=== PATIENT | female | born 1960 | race Caucasian/White ===

== ENCOUNTER 2016-10-02 14:20 | Inpatient (IN) | payer OTHER ==
[~2016-10-02] VITALS: Ht 167.6 cm; Wt 78.1 kg
--- NOTE | ~2016-10-02 | WRIGHTHP ---
[place], [place] PATIENT HISTORY AND PHYSICAL EXAM NAME: FRANCISCO MIRZA [facility] #: [id number] UNIT #: [id number] ROOM: 518 DOCTOR: THELMA LONGO MD BIRTHDATE: [birth year] DOS: 10/02/2016 HISTORY OF PRESENT ILLNESS: The patient is a 55-year-old female with a past medical history of: 1. Major depression, recurrent. 2. Severe generalized anxiety disorder. 3. GERD. 4. History of substance abuse with marijuana and cocaine in the past. 5. History of recurrent severe chronic abdominal pains from uncertain etiology. The patient is completely worked up by production finisher with EGD, CT scan of the abdomen and pelvis, and colonoscopy in the past, which only showed a small hiatal hernia and some gastritis. 6. Chronic pain syndrome and opioid seeking behavior. 7. History of continued nicotine smoke dependence. 8. Type 2 diabetes mellitus. 9. Irritable bowel syndrome. 10. History of hepatitis C positive in the past, which was treated. The patient came to my office yesterday complaining of some episode of shortness of breath and pulse oximetry and exercise pulse oximetry was completely normal. The patient was sent home, but she came back to the Emergency Department this time complaining of chest tightness. The pains were in the mid to left chest precordial and radiating into her neck. After initial testing in the Emergency Department, the patient was recommended for admission and further management. After admission, the patient's cardiac enzymes were checked to be normal and then she was taken for a cardiac stress test. Results of the cardiac stress test still pending. The patient is chest pain free. REVIEW OF SYSTEMS: LUNGS: Occasional complains of shortness of breath. GASTROINTESTINAL: No nausea, vomiting, diarrhea, or constipation. CARDIOVASCULAR: Recurrent chest pains, no palpitations. FAMILY HISTORY: Noncontributory. HOME MEDICATIONS: Gabapentin, Wellbutrin, trazodone, Brintellix, Seroquel, nicotine patch, hydroxyzine, bronchodilators, clonazepam, DuoNebs. ALLERGIES: No known drug allergies. PHYSICAL EXAMINATION: GENERAL APPEARANCE: The patient is alert and oriented x 3, in no visible distress. VITAL SIGNS: Blood pressure 127/50, heart rate 78 beats per minute, breathing 18 times per minute, temperature 98 degrees Fahrenheit. HEENT AND NECK: Extraocular movements are intact. Sclerae are anicteric. Oral mucosa is moist and clean. No obvious facial weakness. Neck is supple without any lymphadenopathy. No thyromegaly. No JVD. No carotid arterial bruits. LUNGS: Clear to auscultation. No wheezing. No rhonchi. CARDIOVASCULAR SYSTEM: Heart rate is regular in rate and rhythm. S1 and S2 normally audible. No significant murmur or any other abnormal cardiac sounds. [place], [place] PATIENT HISTORY AND PHYSICAL EXAM NAME: FRANCISCO MIRZA UNIT #: [id number] ROOM: 518 DOCTOR: THELMA LONGO MD BIRTHDATE: [birth year] ABDOMEN: Soft, nontender. No obvious organomegaly. Bowel sounds are present. No obvious herniation. EXTREMITIES: Without significant cyanosis or edema. Warm to touch. CENTRAL NERVOUS SYSTEM: Alert and oriented x 3. Cranial nerves II-XII are intact. Speech is normal. The patient is able to move all extremities. Normal muscle strength. Deep tendon reflexes are equal on both sides. Plantars were downgoing. LABORATORY DATA: PT and PTT were normal. CBC was normal. IMPRESSION AND PLAN: 1. The patient with chest pains from uncertain etiology, ruled out with negative cardiac enzymes and her cardiac stress test results are pending. If normal, she can be discharged to home today to follow up at the office. 2. Severe generalized anxiety disorder, treated and followed. The patient also follows up with Psychiatry. Presently on bupropion, hydroxyzine, clonazepam. 3. Bronchial asthma and centrilobular emphysema from continued nicotine smoke dependence. The patient being encouraged to stop and kept on bronchodilators. 4. Nicotine smoke dependence. The patient on nicotine patch to help her stop smoking cigarettes. 5. Type 2 diabetes mellitus. Blood sugars will be monitored and treated. 6. Treated hepatitis C in the past. THELMA LONGO MD CM:HISPHYS:PATIENT HISTORY AND PHYSICAL EXAMINATION [id number] THELMA LONGO MD 10/03/16 1223 interface
--- NOTE | ~2016-10-02 | ST ---
[place], [place] EXERCISE STRESS TEST REPORT NAME: [facility] [id number] UNIT #: [id number] ROOM: 518 DOCTOR: QING LR,THELMA Cool BIRTHDATE: [birth year] DOS: 10/03/2016 The patient is 55 years old, 5 feet and 9 inches tall, weighing 173 pounds. The patient was tested with Lexiscan Cardiolite cardiac stress test. The patient was given 0.4 mg of Lexiscan infusion over 10 seconds and this was followed by Cardiolite injection in 40 seconds. The patient's blood pressure ranged between 120 systolic over 70 diastolic to 126 systolic over 60 diastolic. Heart rate ranged between 76-118 beats per minute. The patient remained chest pain free. Baseline EKG showed sinus rhythm at a heart rate of 80 beats per minute, normal cardiac axis, no significant ST-T abnormality. During the stress and recovery phase, the patient remained symptom free. No acute ST-T abnormality. No angina-like symptoms. IMPRESSION: 1. Normal EKG part of the Lexiscan cardiac stress test. 2. Cardiolite results to be reported by Cardiology later today. THELMA LONGO MD CM:STRESS:EXERCISE STRESS TEST REPORT [id number] THELMA LONGO MD
[~2016-10-02 14:20] MED LIST: ALBUTEROL2.5 MG/0.5 INH; ALIVE WOMENS ENERGY; AMOXICILLIN500 M2 PO; BENTYL10 MG PO; BENTYL20 MG PO; BRIN20TA PO; CIPROFLOXACIN500 MG PO; COLON CLEANSE; DAYPRO600 M1 PO; EFFEXOR XR150 MG PO; FLAGYL500 MG PO; GEODON80 MG PO; HYDROCODONE BIT1 T11 PO; HYOMAX0.125 MG PO; KEFLEX500 MG PO; KLONOPIN1 MG; KLONOPIN1 MG PO; LEVOFLOXACIN500 MG PO; LOMOTIL 0.025 M1 TA1 PO; MEDROL DOSEPAK4 MG PO; MOTRIN800 MG PO; Motrin,Rufen800 MG PO; NAPROSYN500 MG PO; NEURONTIN300 MG PO; NICOTINE T21 MG/24 H TD; OMEPRAZOLE20 MG; ONDANSETRON HYDR4 M1 PO; Orphenadrine C100 MG PO; PERCOCET 325 MG1 TA2 PO; PERCOCET 325 MG1 TA7 PO; POTASSIUM GLUC550 M1 PO; PRISTIQ50 MG PO; PROTONIX40 MG PO; ROBAXIN750 MG PO; SEROQUEL100 MG PO; SEROQUEL50 MG PO; TRAMADOL HCL50 MG PO; TRAZADONE HYDR100 MG PO; TRAZODONE150 MG PO; ULTRAM50 MG PO; URIBEL PO; VENTOLIN H0.09 MG/AC INH; VESICARE5 MG PO; VIBRAMYCIN100 MG PO; VICO75300 PO; VICODIN 5-3001 EACH PO; VICODIN 5/500 505 MG PO; VICODIN ES 7501 TA1; VICODIN ES 7501 TAB PO; VIIBRYD; VIIBRYD40; VOLTAREN50 M1 PO; WELLBUTRIN XL300 MG PO; ZANTAC150 MG PO; ZOFRAN ODT8 MG PO; ZOFRAN4 MG PO; ZOVIRAX800 MG PO; Zofran4 MG PO; [UNRECOGNIZED DRUG - OTHER] PO; [UNRECOGNIZED DRUG - OTHER] PO
[2016-10-02 14:28] VITALS: BP 190/86
[2016-10-02] MEDS ORDERED: SYMBICORT1 AE1 INH (14:31)
[2016-10-02 14:39] LABS: BASO # 0.1 10*3/uL (0.0-0.1); BASO % 0.7 % (0.0-1.0); EOS # 0.2 10*3/uL (0.0-0.4); EOS % 1.9 % (1.0-4.0); HEMATOCRIT 45.4 % (37.0-47.0); HEMOGLOBIN 15.1 g/dl (12.0-16.0); LYMPH # 3.5 10*3/uL (1.3-4.4); LYMPH % 37.2 % (27.0-41.0); MEAN CELL VOLUME 91.2 fl (81.0-99.0); MEAN CORPUSCULAR HGB 30.3 pg (27.0-31.0); MEAN CORPUSCULAR HGB CONC 33.3 g/dl (33.0-37.0); MEAN PLATELET VOLUME 10.7 fl (9.6-12.3); MONO # 0.8 10*3/uL (0.1-1.0); MONO % 8.3 % (3.0-9.0); NEUT # 4.9 10*3/uL (2.3-7.9); NEUT % 51.6 % (47.0-73.0); PLATELET COUNT AUTOMATED 214 10*3/uL (130-400); RED BLOOD COUNT 4.98 10*6/uL (4.10-5.10); RED CELL DISTRI WIDTH 13.4 % (0-14.5); WHITE BLOOD COUNT 9.4 10*3/uL (4.8-10.8)
[2016-10-02 14:50] LABS: INTERNATIONAL NORM RATIO 0.9 (2.0-3.5); PROTHROMBIN TIME 9.9 SECONDS (9.0-12.4)
[2016-10-02 15:00] VITALS: BP 163/80
[2016-10-02 15:04] LABS: ALBUMIN 3.9 gm/dl (3.1-4.5); ALKALINE PHOSPHATASE 85 U/L (45-117); BILIRUBIN, TOTAL 0.3 mg/dl (0.2-1.0); BUN 15 mg/dl (7-24); CARBON DIOXIDE 26 mmol/L (21-32); CHLORIDE 105 mmol/L (98-107); EST GLOM FILT AFRICAN AMERICAN > 60 ml/min; GLUCOSE 92 mg/dL (65-99); MAGNESIUM 1.8 mg/dL (1.5-2.1); POTASSIUM 3.8 mmol/L (3.5-5.1); SGOT/AST 19 IU/L (3-35); SGPT/ALT 24 U/L (12-78); SODIUM 138 mmol/L (136-145); TOTAL PROTEIN 7.4 gm/dL (6.4-8.2)
[2016-10-02 15:05] LABS: TROPONIN I < 0.015 ng/ml (<0.045)
[2016-10-02 15:48] LABS: URINE AMPHETAMINES < 1000 (1000ng/ml); URINE BARBITURATES < 200 (200ng/ml); URINE COCAINE < 300 (300ng/ml)
[2016-10-02 16:00] VITALS: BP 148/53
[2016-10-02 16:09] LABS: BILIRUBIN NEGATIVE (NEGATIVE); BLOOD TRACE-INTACT (NEGATIVE); CLARITY CLEAR (CLEAR); COLOR YELLOW (YELLOW); GLUCOSE NEGATIVE (NEGATIVE); KETONE NEGATIVE (NEGATIVE); LEUKO ESTERASE NEGATIVE (NEGATIVE); NITRITE NEGATIVE (NEGATIVE); PROTEIN NEGATIVE (NEGATIVE); UROBILINOGEN 0.2 E.U./dl (0.2-1.0)
[2016-10-02 16:29] LABS: EPITHELIAL CELLS 0-2; URINE REFLEX COMMENT NO (NO); WBC 0-2 wbc/hpf (0-5)
[2016-10-02 18:07] VITALS: BP 153/77
[2016-10-02 18:15] VITALS: BP 152/78
[2016-10-02] MEDS ORDERED: NEURONTIN300 MG PO (18:31)
[2016-10-02] MEDS ORDERED: WELLBUTRIN SR200 MG PO (18:31)
[2016-10-02] MEDS ORDERED: VISTARIL25 MG PO (18:32)
[2016-10-02 20:00] VITALS: BP 148/53
[2016-10-03] VITALS: BP 121/64
[2016-10-03 08:00] VITALS: BP 127/50
[2016-10-03 12:00] VITALS: BP 140/71
[2016-10-03 16:00] VITALS: BP 127/67
[2016-10-03] MEDS ORDERED: NICOTINE T21 MG/24 H TD (17:06)
== END 2016-10-03 18:11 | disposition home or self-care (01) | DRG 206 ==
LOC: ED 14:20 → EDHOLD 15:34 → 5E 16:09
PROVIDERS: Emergency Medicine; Physician Assistant
DX: M94.0 Chondrocostal junction syndrome [Tietze] (principal); F33.9 Major depressive disorder, recurrent, unspecified; F41.1 Generalized anxiety disorder; J43.2 Centrilobular emphysema; J45.998 Other asthma; F17.210 Nicotine dependence, cigarettes, uncomplicated; E11.9 Type 2 diabetes mellitus without complications; B19.20 Unspecified viral hepatitis C without hepatic coma; K21.9 Gastro-esophageal reflux disease without esophagitis; G89.4 Chronic pain syndrome; K58.9 Irritable bowel syndrome, unspecified

== ENCOUNTER 2016-11-03 15:23 | Emergency (ER) | payer OTHER ==
[~2016-11-03 15:23] MED LIST changes: +SYMBICORT1 AE1 INH; +VISTARIL25 MG PO; +WELLBUTRIN SR200 MG PO
[2016-11-03 15:33] VITALS: BP 144/80
[2016-11-03] MEDS ORDERED: AMOXICILLIN500 M2 PO (16:39)
== END 2016-11-03 16:27 | disposition home or self-care (01) ==
LOC: ED 15:23
DX: S62.632A Displaced fracture of distal phalanx of right middle finger, initial encounter for closed fracture (principal); S61.212A Laceration without foreign body of right middle finger without damage to nail, initial encounter; F17.200 Nicotine dependence, unspecified, uncomplicated; G89.29 Other chronic pain; F41.8 Other specified anxiety disorders; K21.9 Gastro-esophageal reflux disease without esophagitis; Z98.890 Other specified postprocedural states; Z79.899 Other long term (current) drug therapy; Z98.51 Tubal ligation status; Z90.89 Acquired absence of other organs; W45.8XXA Other foreign body or object entering through skin, initial encounter; Y93.89 Activity, other specified; Y92.59 Other trade areas as the place of occurrence of the external cause; Y99.9 Unspecified external cause status

== ENCOUNTER 2016-11-14 10:10 | Emergency (ER) | payer OTHER ==
[~2016-11-14] VITALS: Wt 73.9 kg
[2016-11-14 10:23] VITALS: BP 126/101
== END 2016-11-14 12:09 | disposition home or self-care (01) ==
LOC: ED 10:10
DX: S62.630G Displaced fracture of distal phalanx of right index finger, subsequent encounter for fracture with delayed healing (principal); L03.011 Cellulitis of right finger; Z79.899 Other long term (current) drug therapy; F17.200 Nicotine dependence, unspecified, uncomplicated; W23.0XXD Caught, crushed, jammed, or pinched between moving objects, subsequent encounter

== ENCOUNTER → 2016-12-12 | Outpatient (CLI) | payer OTHER | END | disposition home or self-care (01) | LOC: ORTHO 03:20 | DX: S62.662D Nondisplaced fracture of distal phalanx of right middle finger, subsequent encounter for fracture with routine healing (principal); X58.XXXD Exposure to other specified factors, subsequent encounter ==

== ENCOUNTER → 2017-02-13 | Outpatient (CLI) | payer OTHER ==
[2017-02-13 10:25] LABS: BASO # 0.1 10*3/uL (0.0-0.1); BASO % 0.6 % (0.0-1.0); EOS # 0.1 10*3/uL (0.0-0.4); EOS % 1.5 % (1.0-4.0); HEMATOCRIT 44.6 % (37.0-47.0); HEMOGLOBIN 14.7 g/dl (12.0-16.0); LYMPH # 2.1 10*3/uL (1.3-4.4); LYMPH % 24.4 % (27.0-41.0); MEAN CELL VOLUME 93.3 fl (81.0-99.0); MEAN CORPUSCULAR HGB 30.8 pg (27.0-31.0); MEAN PLATELET VOLUME 10.8 fl (9.6-12.3); MONO # 0.7 10*3/uL (0.1-1.0); MONO % 8.2 % (3.0-9.0); NEUT # 5.5 10*3/uL (2.3-7.9); NEUT % 64.9 % (47.0-73.0); PLATELET COUNT AUTOMATED 197 10*3/uL (130-400); RED BLOOD COUNT 4.78 10*6/uL (4.10-5.10); RED CELL DISTRI WIDTH 13.4 % (0-14.5); WHITE BLOOD COUNT 8.5 10*3/uL (4.8-10.8)
[2017-02-13 10:58] LABS: ALBUMIN 3.6 gm/dl (3.1-4.5); BUN 15 mg/dl (7-24); CHLORIDE 104 mmol/L (98-107); POTASSIUM 3.8 mmol/L (3.5-5.1); SGOT/AST 32 IU/L (3-35); SGPT/ALT 43 U/L (12-78); SODIUM 138 mmol/L (136-145); TOTAL PROTEIN 6.9 gm/dL (6.4-8.2)
[2017-02-13 10:59] LABS: ALKALINE PHOSPHATASE 73 U/L (45-117)
[2017-02-14 20:09] LABS: HEPATITIS C QNT HCV Not Detected IU/mL (.)
== END | disposition home or self-care (01) ==
LOC: LAB 09:50
PROVIDERS: Family Medicine
DX: K57.92 Diverticulitis of intestine, part unspecified, without perforation or abscess without bleeding (principal)

== ENCOUNTER → 2017-02-14 | Outpatient (CLI) | payer OTHER | END | disposition home or self-care (01) | LOC: CT 02:09 | DX: K57.92 Diverticulitis of intestine, part unspecified, without perforation or abscess without bleeding (principal); J43.9 Emphysema, unspecified; E07.9 Disorder of thyroid, unspecified; N28.1 Cyst of kidney, acquired; I70.0 Atherosclerosis of aorta; K42.9 Umbilical hernia without obstruction or gangrene ==

== ENCOUNTER → 2017-07-16 | Outpatient (CLI) | payer OTHER ==
[2017-07-18 00:02] LABS: CLONAZEPAM (KLONOPIN),SERUM 10 ng/mL (20-70)
== END | disposition home or self-care (01) ==
LOC: LAB 11:13
PROVIDERS: Nurse Practitioner Adult Health
DX: F31.9 Bipolar disorder, unspecified (principal)

== ENCOUNTER 2017-08-19 14:36 | Emergency (ER) | payer OTHER ==
[~2017-08-19] VITALS: Ht 170.1 cm; Wt 72.6 kg
[2017-08-19 14:58] VITALS: BP 145/85
[2017-08-19] MEDS ORDERED: Zofran4 MG PO (15:04)
[2017-08-19 15:59] LABS: BASO # 0.1 10*3/uL (0.0-0.1); EOS # 0.2 10*3/uL (0.0-0.4); EOS % 1.9 % (1.0-4.0); HEMATOCRIT 45.3 % (37.0-47.0); HEMOGLOBIN 14.7 g/dl (12.0-16.0); LYMPH # 2.3 10*3/uL (1.3-4.4); LYMPH % 29.5 % (27.0-41.0); MEAN CELL VOLUME 93.6 fl (81.0-99.0); MEAN CORPUSCULAR HGB 30.4 pg (27.0-31.0); MEAN CORPUSCULAR HGB CONC 32.5 g/dl (33.0-37.0); MEAN PLATELET VOLUME 11.1 fl (9.6-12.3); MONO # 0.7 10*3/uL (0.1-1.0); MONO % 9.3 % (3.0-9.0); NEUT # 4.6 10*3/uL (2.3-7.9); PLATELET COUNT AUTOMATED 213 10*3/uL (130-400); RED BLOOD COUNT 4.84 10*6/uL (4.10-5.10); WHITE BLOOD COUNT 7.9 10*3/uL (4.8-10.8)
[2017-08-19 16:13] LABS: BILIRUBIN NEGATIVE (NEGATIVE); BLOOD TRACE-INTACT (NEGATIVE); CLARITY CLEAR (CLEAR); COLOR YELLOW (YELLOW); GLUCOSE NEGATIVE (NEGATIVE); KETONE NEGATIVE (NEGATIVE); LEUKO ESTERASE NEGATIVE (NEGATIVE); NITRITE NEGATIVE (NEGATIVE); SPECIFIC GRAVITY <= 1.005 (1.005-1.030); UROBILINOGEN 0.2 E.U./dl (0.2-1.0)
[2017-08-19 16:19] LABS: ALBUMIN 3.5 gm/dl (3.1-4.5); ALKALINE PHOSPHATASE 86 U/L (45-117); BUN 15 mg/dl (7-24); CHLORIDE 106 mmol/L (98-107); CREATININE 0.97 mg/dL (0.55-1.02); LIPASE 322 U/L (73-393); POTASSIUM 4.3 mmol/L (3.5-5.1); SGOT/AST 17 IU/L (3-35); SGPT/ALT 19 U/L (12-78); SODIUM 141 mmol/L (136-145)
[2017-08-19 16:31] LABS: BACTERIA 2+; RBC 0-2 rbc/hpf (0-2)
== END 2017-08-19 17:37 | disposition home or self-care (01) ==
LOC: ED 14:36
PROVIDERS: Emergency Medicine
DX: K58.9 Irritable bowel syndrome, unspecified (principal); R10.32 Left lower quadrant pain; G89.29 Other chronic pain; K21.9 Gastro-esophageal reflux disease without esophagitis; F17.200 Nicotine dependence, unspecified, uncomplicated; Z98.890 Other specified postprocedural states; Z98.51 Tubal ligation status; Z90.89 Acquired absence of other organs; Z79.899 Other long term (current) drug therapy

== ENCOUNTER → 2018-05-07 | Outpatient (CLI) | payer OTHER | END | disposition home or self-care (01) | LOC: RAD 13:32 | DX: R06.02 Shortness of breath (principal); J44.9 Chronic obstructive pulmonary disease, unspecified; F17.210 Nicotine dependence, cigarettes, uncomplicated ==

== ENCOUNTER → 2018-05-23 | Day surgery (SDC) | payer OTHER ==
[~2018-05-23] VITALS: Ht 170.1 cm; Wt 79.8 kg
[~2018-05-23] MED LIST changes: +NEURONTIN600 MG PO
--- NOTE | ~2018-05-23 | O ---
[place], [place] OPERATIVE NOTE NAME: FRANCISCO MIRZA UNIT #: [id number] ROOM: DOCTOR: ELENA MCDANIEL MD BIRTHDATE: [birth year] DOS: 05/23/2018 GASTROENDOSCOPIC REPORT INDICATIONS: This is a 57-year-old patient who has presented with a chief complaint of constipation, undergoing investigation. MEDICATIONS: The patient is on Amitiza 24 mcg, MiraLax, and Bentyl. ALLERGIES: To no known medications. FAMILY HISTORY: Noncontributory. PAST SURGICAL HISTORY: Laparoscopic examination, . PAST MEDICAL HISTORY: Depression. SOCIAL HISTORY: Smoker. Nonalcohol consumer. PROCEDURE: Today's procedure part of investigation is colonoscopy. PREMEDICATION: Propofol. SCOPE: Olympus forward-viewing colonoscope 10L video. REPORT: After putting the patient in left lateral position and application of lubricant to the scope, scope was introduced, thereafter under direct visualization advanced through the length of colon with some difficulty; difficulty being because of retained stool as well as tortuosity of the colon was exacerbating the situation. Scope was negotiated all the way throughout the length of colon until we no longer can advance due to retained stool. Diverticulosis of the sigmoid colon was appreciated. A sessile polypoid lesion also in the sigmoid colon noticed. With piecemeal polypectomy, we removed it. Photographic series obtained. Air was suctioned out. The patient was extubated, tolerated the procedure well. IMPRESSION: Sigmoid colon polyp status post piecemeal polypectomy, diverticulosis. PLAN AND DISCUSSION: We are going to continue with Amitiza, MiraLax, and Bentyl. Tortuosity of the colon is an anatomical defect. Regarding the constipation issue, she needs always to remain on stool softener or laxatives. CT scan of the abdomen, no acute pathology has been found. Thank you very much indeed for your kind referral. [place], [place] OPERATIVE NOTE NAME: FRANCISCO MIRZA UNIT #: [id number] ROOM: DOCTOR: ELENA MCDANIEL MD BIRTHDATE: [birth year] ELENA MCDANIEL MD CM:OPRECORD:OPERATIVE NOTE [id number] ELENA MCDANIEL MD 05/23/18 1402 interface
[2018-05-23 11:00] VITALS: BP 128/77
[2018-05-23 13:20] VITALS: BP 134/67
[2018-05-23 13:35] VITALS: BP 121/85
[2018-05-23 13:50] VITALS: BP 126/81
== END | disposition home or self-care (01) ==
LOC: SDC 05-19 12:30
DX: K63.5 Polyp of colon (principal); K21.9 Gastro-esophageal reflux disease without esophagitis; F32.9 Major depressive disorder, single episode, unspecified; I10 Essential (primary) hypertension; J45.909 Unspecified asthma, uncomplicated; B19.20 Unspecified viral hepatitis C without hepatic coma; F17.210 Nicotine dependence, cigarettes, uncomplicated; F41.9 Anxiety disorder, unspecified; J43.9 Emphysema, unspecified; Z79.899 Other long term (current) drug therapy; Z86.73 Personal history of transient ischemic attack (TIA), and cerebral infarction without residual deficits; Z98.890 Other specified postprocedural states; Z82.49 Family history of ischemic heart disease and other diseases of the circulatory system

== ENCOUNTER → 2018-12-04 | Outpatient (CLI) | payer OTHER ==
[~2018-12-04] MED LIST changes: +ACYCLOVIR800 MG PO; +EFFEXOR XR75 MG PO; +FLUCONAZOLE100 MG PO; +METOPROLOL SUCC25 M2 PO; +NORCO 5-325 TA1 EACH PO; +OMNICEF300 MG PO; +PRILOSEC20 M1 PO
[2018-12-05 07:09] LABS: HEPATITIS B SURFACE AG Negative (Negative); HEPATITIS C VIRUS ANTIBODY >11.0 s/co (0.0-0.9)
[2018-12-06 00:03] LABS: HEPATITIS C QUANTITATION HCV Not Detected IU/mL (.)
== END | disposition home or self-care (01) ==
LOC: LAB 11:25
PROVIDERS: Family Medicine
DX: B18.2 Chronic viral hepatitis C (principal); B37.81 Candidal esophagitis; Z11.4 Encounter for screening for human immunodeficiency virus [HIV]

== ENCOUNTER 2021-03-22 12:11 | Emergency (ER) | payer OTHER ==
[2021-03-22 13:14] LABS: BASO # 0.1 10*3/uL (0.0-0.1); BASO % 0.9 % (0.0-1.0); EOS # 0.2 10*3/uL (0.0-0.4); EOS % 1.9 % (1.0-4.0); HEMATOCRIT 44.4 % (37.0-47.0); LYMPH # 2.8 10*3/uL (1.3-4.4); LYMPH % 29.9 % (27.0-41.0); MEAN CELL VOLUME 93.1 fl (81.0-99.0); MEAN CORPUSCULAR HGB 30.6 pg (27.0-31.0); MEAN CORPUSCULAR HGB CONC 32.9 g/dl (33.0-37.0); MEAN PLATELET VOLUME 10.4 fl (9.6-12.3); MONO # 0.8 10*3/uL (0.1-1.0); MONO % 8.9 % (3.0-9.0); NEUT # 5.5 10*3/uL (2.3-7.9); NEUT % 58.2 % (47.0-73.0); PLATELET COUNT AUTOMATED 233 10*3/uL (130-400); RED BLOOD COUNT 4.77 10*6/uL (4.10-5.10); RED CELL DISTRI WIDTH 12.8 % (0-14.5); WHITE BLOOD COUNT 9.4 10*3/uL (4.8-10.8)
[2021-03-22 13:30] LABS: ALBUMIN 3.5 gm/dl (3.1-4.5); ALKALINE PHOSPHATASE 65 U/L (45-117); BUN 11 mg/dl (7-24); CHLORIDE 106 mmol/L (98-107); CREATININE 0.87 mg/dL (0.55-1.02); LIPASE 159 U/L (73-393); POTASSIUM 4.4 mmol/L (3.5-5.1); SGOT/AST 17 IU/L (3-35); SGPT/ALT 27 U/L (12-78); SODIUM 137 mmol/L (136-145); TOTAL PROTEIN 6.9 gm/dL (6.4-8.2)
[2021-03-22 13:50] VITALS: BP 167/82
[2021-03-22 13:52] LABS: BILIRUBIN Negative (Negative); BLOOD Trace-Lysed (Negative); CLARITY Clear (Clear); COLOR Yellow (Yellow); GLUCOSE Negative (Negative); KETONE Negative (Negative); LEUKO ESTERASE Negative (Negative); NITRITE Negative (Negative); PH 7.5 (4.5-8.0); SPECIFIC GRAVITY <= 1.005 (1.001-1.030); UROBILINOGEN 0.2 E.U./dl (0.0-1.0)
[2021-03-22 14:18] LABS: BACTERIA 3+; WBC 0-2 wbc/hpf (0-5); YEAST TRACE
== END 2021-03-22 15:26 | disposition home or self-care (01) ==
LOC: ED 12:11
PROVIDERS: Emergency Medicine; Physician Assistant
DX: R10.9 Unspecified abdominal pain (principal); Z79.899 Other long term (current) drug therapy

== ENCOUNTER 2021-03-24 12:11 | Emergency (ER) | payer OTHER ==
[~2021-03-24] VITALS: Ht 170.1 cm; Wt 68.5 kg
[2021-03-24 12:21] VITALS: BP 160/75
[2021-03-24] MEDS ORDERED: LIPITOR80 MG PO (12:22)
[2021-03-24] MEDS ORDERED: KLONOPIN0.5 MG PO (12:29)
[2021-03-24] MEDS ORDERED: OMEPRAZOLE40 MG PO (12:30)
[2021-03-24] MEDS ORDERED: TOPROL XL100 MG PO (12:30)
[2021-03-24] MEDS ORDERED: EFFEXOR XR37.5 M1 PO (12:32)
[2021-03-24] MEDS ORDERED: ASPIRIN CHEWABL81 MG PO (12:33)
[2021-03-24] MEDS ORDERED: BENTYL PO (12:33)
[2021-03-24] MEDS ORDERED: MAGNESIUM400 MG PO (12:33)
[2021-03-24] MEDS ORDERED: LOSARTAN POTAS100 M1 PO (12:34)
[2021-03-24] MEDS ORDERED: PROAIR HFA8.5 GM INH (12:34)
[2021-03-24] MEDS ORDERED: FLONASE ALLERG9.9 ML NAS (12:35)
[2021-03-24] MEDS ORDERED: GARLIC1000 M1 PO (12:35)
[2021-03-24] MEDS ORDERED: VITAMIN D3125 MC1 PO (12:37)
[2021-03-24] MEDS ORDERED: MELATONIN10 M2 PO (12:38)
[2021-03-24 13:40] LABS: BASO # 0.1 10*3/uL (0.0-0.1); BASO % 0.6 % (0.0-1.0); EOS # 0.1 10*3/uL (0.0-0.4); EOS % 1.5 % (1.0-4.0); HEMATOCRIT 43.3 % (37.0-47.0); LYMPH # 2.3 10*3/uL (1.3-4.4); LYMPH % 28.4 % (27.0-41.0); MEAN CELL VOLUME 95.2 fl (81.0-99.0); MEAN CORPUSCULAR HGB 30.3 pg (27.0-31.0); MEAN CORPUSCULAR HGB CONC 31.9 g/dl (33.0-37.0); MEAN PLATELET VOLUME 10.6 fl (9.6-12.3); MONO # 0.8 10*3/uL (0.1-1.0); MONO % 10.3 % (3.0-9.0); NEUT # 4.8 10*3/uL (2.3-7.9); PLATELET COUNT AUTOMATED 199 10*3/uL (130-400); RED BLOOD COUNT 4.55 10*6/uL (4.10-5.10); RED CELL DISTRI WIDTH 12.7 % (0-14.5); WHITE BLOOD COUNT 8.2 10*3/uL (4.8-10.8)
[2021-03-24 13:40] LABS: BILIRUBIN Negative (Negative); BLOOD Trace-Intact (Negative); CLARITY Clear (Clear); COLOR Yellow (Yellow); GLUCOSE Negative (Negative); KETONE Negative (Negative); LEUKO ESTERASE Negative (Negative); NITRITE Negative (Negative); SPECIFIC GRAVITY <= 1.005 (1.001-1.030); UROBILINOGEN 0.2 E.U./dl (0.0-1.0)
[2021-03-24 13:58] LABS: ALBUMIN 3.3 gm/dl (3.1-4.5); ALKALINE PHOSPHATASE 65 U/L (45-117); BUN 10 mg/dl (7-24); CHLORIDE 105 mmol/L (98-107); CREATININE 0.94 mg/dL (0.55-1.02); LIPASE 112 U/L (73-393); POTASSIUM 4.8 mmol/L (3.5-5.1); SGOT/AST 27 IU/L (3-35); SGPT/ALT 28 U/L (12-78); SODIUM 133 mmol/L (136-145); TOTAL PROTEIN 6.8 gm/dL (6.4-8.2); TROPONIN I < 0.015 ng/ml (<0.045)
== END 2021-03-24 16:03 | disposition left against medical advice (07) ==
LOC: ED 12:11
PROVIDERS: Emergency Medicine
DX: R10.13 Epigastric pain (principal); R11.10 Vomiting, unspecified; R19.7 Diarrhea, unspecified; J44.9 Chronic obstructive pulmonary disease, unspecified; K21.9 Gastro-esophageal reflux disease without esophagitis; F17.210 Nicotine dependence, cigarettes, uncomplicated; Z79.899 Other long term (current) drug therapy; Z79.82 Long term (current) use of aspirin

== ENCOUNTER 2021-04-21 08:17 | Emergency (ER) | payer OTHER ==
[~2021-04-21 08:17] MED LIST changes: +ASPIRIN CHEWABL81 MG PO; +BENTYL PO; +EFFEXOR XR37.5 M1 PO; +FLONASE ALLERG9.9 ML NAS; +GARLIC1000 M1 PO; +KLONOPIN0.5 MG PO; +LIPITOR80 MG PO; +LOSARTAN POTAS100 M1 PO; +MAGNESIUM400 MG PO; +MELATONIN10 M2 PO; +OMEPRAZOLE40 MG PO; +PROAIR HFA8.5 GM INH; +TOPROL XL100 MG PO; +VITAMIN D3125 MC1 PO
== END 2021-04-21 08:45 | disposition left against medical advice (07) ==
LOC: ED 08:17
DX: R42 Dizziness and giddiness (principal); R11.2 Nausea with vomiting, unspecified; Z53.21 Procedure and treatment not carried out due to patient leaving prior to being seen by health care provider

== ENCOUNTER 2022-08-23 16:17 | Emergency (ER) | payer MEDICARE ==
[~2022-08-23] VITALS: Wt 73.9 kg
[2022-08-23 18:16] VITALS: BP 175/76
[2022-08-23 18:40] LABS: BASO # 0.1 10*3/uL (0.0-0.1); BASO % 0.6 % (0.0-1.0); EOS # 0.2 10*3/uL (0.0-0.4); EOS % 1.9 % (1.0-4.0); LYMPH # 2.7 10*3/uL (1.3-4.4); LYMPH % 34.7 % (27.0-41.0); MEAN CELL VOLUME 98.6 fl (81.0-99.0); MEAN CORPUSCULAR HGB 31.7 pg (27.0-31.0); MEAN CORPUSCULAR HGB CONC 32.1 g/dl (33.0-37.0); MEAN PLATELET VOLUME 11.1 fl (9.6-12.3); MONO # 0.8 10*3/uL (0.1-1.0); MONO % 9.7 % (3.0-9.0); NEUT # 4.1 10*3/uL (2.3-7.9); PLATELET COUNT AUTOMATED 174 10*3/uL (130-400); RED BLOOD COUNT 4.26 10*6/uL (4.10-5.10); RED CELL DISTRI WIDTH 13.5 % (0-14.5); WHITE BLOOD COUNT 7.8 10*3/uL (4.8-10.8)
[2022-08-23 18:56] LABS: ALKALINE PHOSPHATASE 55 U/L (46-116); BUN 7 mg/dl (9-23); CHLORIDE 104 mmol/L (98-107); POTASSIUM 4.4 mmol/L (3.4-5.1); SGPT/ALT 14 U/L (10-49); TOTAL PROTEIN 6.4 gm/dL (6.0-8.0)
[2022-08-23] MEDS ORDERED: ZANAFLEX4 MG PO (19:52)
[2022-08-23] MEDS ORDERED: TRAMADOL HCL50 MG PO (19:52)
== END 2022-08-23 20:18 | disposition home or self-care (01) ==
LOC: ED 16:17
PROVIDERS: Nurse Practitioner Family
DX: M54.12 Radiculopathy, cervical region (principal); I10 Essential (primary) hypertension; Z79.899 Other long term (current) drug therapy; Z79.82 Long term (current) use of aspirin; Z98.890 Other specified postprocedural states; Z90.89 Acquired absence of other organs; Z98.51 Tubal ligation status

== ENCOUNTER 2022-11-14 11:17 | Emergency (ER) | payer MEDICARE ==
[~2022-11-14] VITALS: Wt 70.3 kg
[~2022-11-14 11:17] MED LIST changes: +ZANAFLEX4 MG PO
[2022-11-14 12:27] LABS: BILIRUBIN Negative (Negative); BLOOD Trace-Lysed (Negative); CLARITY Clear (Clear); COLOR Yellow (Yellow); GLUCOSE Negative (Negative); KETONE Negative (Negative); LEUKO ESTERASE Negative (Negative); NITRITE Negative (Negative); PH 5.5 (4.5-8.0); SPECIFIC GRAVITY <= 1.005 (1.001-1.030); UROBILINOGEN 0.2 E.U./dl (0.0-1.0)
[2022-11-14 12:33] LABS: BASO % 0.5 % (0.0-1.0); EOS # 0.1 10*3/uL (0.0-0.4); EOS % 1.3 % (1.0-4.0); HEMATOCRIT 43.4 % (37.0-47.0); LYMPH % 25.4 % (27.0-41.0); MEAN CORPUSCULAR HGB 31.2 pg (27.0-31.0); MEAN CORPUSCULAR HGB CONC 32.5 g/dl (33.0-37.0); MEAN PLATELET VOLUME 11.4 fl (9.6-12.3); MONO # 0.7 10*3/uL (0.1-1.0); MONO % 8.5 % (3.0-9.0); NEUT % 63.9 % (47.0-73.0); PLATELET COUNT AUTOMATED 179 10*3/uL (130-400); RED BLOOD COUNT 4.52 10*6/uL (4.10-5.10); RED CELL DISTRI WIDTH 13.2 % (0-14.5); WHITE BLOOD COUNT 7.8 10*3/uL (4.8-10.8)
[2022-11-14 12:39] LABS: EPITHELIAL CELLS 0-2; WBC 0-2 wbc/hpf (0-5)
[2022-11-14 12:44] LABS: ACT PARTIAL THROMBO TIME 26.6 SECONDS (20.0-32.1)
[2022-11-14 12:59] LABS: ALKALINE PHOSPHATASE 61 U/L (46-116); CHLORIDE 107 mmol/L (98-107); LIPASE 59 U/L (12-53); POTASSIUM 3.9 mmol/L (3.4-5.1); SGPT/ALT 16 U/L (10-49); TOTAL PROTEIN 6.7 gm/dL (6.0-8.0)
[2022-11-14 13:14] LABS: BUN < 5 mg/dl (9-23)
[2022-11-14 15:01] VITALS: BP 189/95
[2022-11-14] MEDS ORDERED: METRONIDAZOLE500 M1 PO (15:11)
[2022-11-14] MEDS ORDERED: HYDROCODONE-AC1 EAC1 PO (15:11)
== END 2022-11-14 15:17 | disposition home or self-care (01) ==
LOC: ED 11:17
PROVIDERS: Emergency Medicine
DX: I10 Essential (primary) hypertension (principal); R19.7 Diarrhea, unspecified; R10.31 Right lower quadrant pain; F41.9 Anxiety disorder, unspecified; F32.A Depression, unspecified; K21.9 Gastro-esophageal reflux disease without esophagitis; Z86.73 Personal history of transient ischemic attack (TIA), and cerebral infarction without residual deficits; E16.2 Hypoglycemia, unspecified; J44.9 Chronic obstructive pulmonary disease, unspecified; Z90.89 Acquired absence of other organs; Z98.51 Tubal ligation status; Z98.890 Other specified postprocedural states

== ENCOUNTER → 2024-04-29 | Outpatient (CLI) | payer OTHER, MEDICAID ==
[~2024-04-29] MED LIST changes: +HYDROCODONE-AC1 EAC1 PO; +METRONIDAZOLE500 M1 PO
== END | disposition home or self-care (01) ==
LOC: LAB 15:05
PROVIDERS: ATTEND Internal Medicine Hematology & Oncology
DX: Z51.81 Encounter for therapeutic drug level monitoring (principal); Z79.01 Long term (current) use of anticoagulants

== ENCOUNTER → 2024-05-08 | Outpatient (CLI) | payer OTHER, MEDICAID | END | disposition home or self-care (01) | LOC: LAB 16:45 | PROVIDERS: ATTEND Internal Medicine Hematology & Oncology | DX: Z51.81 Encounter for therapeutic drug level monitoring (principal); Z79.01 Long term (current) use of anticoagulants ==

== ENCOUNTER → 2024-05-19 | Outpatient (CLI) | payer OTHER, MEDICAID | END | disposition home or self-care (01) | LOC: LAB 10:05 | PROVIDERS: ATTEND Internal Medicine Hematology & Oncology | DX: Z51.81 Encounter for therapeutic drug level monitoring (principal); Z79.01 Long term (current) use of anticoagulants ==

== ENCOUNTER → 2024-06-03 | Outpatient (CLI) | payer OTHER, MEDICAID | END | disposition home or self-care (01) | LOC: LAB 17:01 | PROVIDERS: ATTEND Internal Medicine Hematology & Oncology | DX: Z51.81 Encounter for therapeutic drug level monitoring (principal); Z79.01 Long term (current) use of anticoagulants ==

== ENCOUNTER → 2024-06-20 | Outpatient (CLI) | payer OTHER, MEDICAID | END | disposition home or self-care (01) | LOC: LAB 08:31 | PROVIDERS: ATTEND Internal Medicine Hematology & Oncology | DX: Z51.81 Encounter for therapeutic drug level monitoring (principal); Z79.01 Long term (current) use of anticoagulants ==

== ENCOUNTER → 2024-07-06 | Outpatient (CLI) | payer OTHER, MEDICAID | END | disposition home or self-care (01) | LOC: LAB 13:26 | PROVIDERS: ATTEND Internal Medicine Hematology & Oncology | DX: Z51.81 Encounter for therapeutic drug level monitoring (principal); Z79.01 Long term (current) use of anticoagulants ==

== ENCOUNTER → 2024-07-16 | Outpatient (CLI) | payer OTHER, MEDICAID | END | disposition home or self-care (01) | LOC: LAB 12:39 | PROVIDERS: ATTEND Internal Medicine Hematology & Oncology | DX: Z51.81 Encounter for therapeutic drug level monitoring (principal); Z79.01 Long term (current) use of anticoagulants ==